=== PATIENT | male | born 1980 | race Two or more races ===

== ENCOUNTER 2016-09-08 09:26 | Emergency (ER) | payer SELFPAY ==
[~2016-09-08] VITALS: Ht 162.6 cm; Wt 70.8 kg
[2016-09-08 09:31] VITALS: BP 142/63
== END 2016-09-08 10:21 | disposition home or self-care (01) ==
LOC: ED 09:26
DX: R10.32 Left lower quadrant pain (principal); R11.2 Nausea with vomiting, unspecified; R19.7 Diarrhea, unspecified
CPT/HCPCS: J1885; Q0162